=== PATIENT | male | born 1990 | race African-American/Black ===

== ENCOUNTER 2024-01-27 21:35 | Emergency (ER) | payer SELFPAY ==
--- NOTE | ~2024-01-27 | XR_ITS ---
Clinical Indication: Fever PA and lateral views of the chest: Comparison: None Findings: The lungs are clear, without evidence of focal consolidation or pleural effusion. Cardiome diastinal silhouette is within normal limits. Bones and soft tissues are unremarkable. Impression: Normal chest. Reviewed, dictated and finalized at location . Impression: Normal chest.
[2024-01-27 21:40] VITALS: BP 142/75; PULSE 81; RESP 15; TEMP 36.7; O2SAT 97
[2024-01-27 22:27] LABS: Basophils Percent Auto 0.5 % (0.2-1.2); Eosinophils Percent Auto 0.5 % (0-4.4); Hematocrit 43.1 % (42.0-52.0); Hemoglobin 15.4 g/dL (14.0-18.0); Immature Granulocyte Absolute 0.01 K/mm3 (0.00-0.031); Immature Granulocyte Percent A 0.2 % (0-0.5); Lymphocytes Absolute Auto 1.28 K/mm3 (0.9-3.2); Lymphocytes Percent Auto 22.8 % (18.3-44.2); Mean Corpuscular HGB Conc 35.7 g/dl (32-36); Mean Corpuscular Volume 89.6 fl (80-100); Mean Platelet Volume 10.5 fl (7.4-10.4); Monocytes Absolute Auto 0.7 K/mm3 (0.1-0.6); Monocytes Percent Auto 12.3 % (2.6-8.5); Neutrophils Absolute Auto 3.6 K/mm3 (1.3-6.7); Neutrophils Percent Auto 63.7 % (45.5-73.1); Platelet Count Result 205 k/mm3 (150-375); Red Blood Count 4.81 M/mm3 (4.6-6.20); Red Cell Distribution Width 11.8 % (11.5-14.5); White Blood Count 5.6 K/mm3 (4.5-10.0)
[2024-01-27 22:31] LABS: Influenza A QL RT-PCR Negative (Negative); Influenza B QL RT-PCR Negative (Negative); RSV RNA, RT-PCR Negative (Negative); SARS-CoV-2 RNA PCR Negative (Negative)
[2024-01-27 22:45] LABS: Alanine Aminotransferase 48 U/L (6-50); Albumin Level 4.7 g/dL (3.5-5.1); Alkaline Phosphatase 89 U/L (38-126); Anion Gap 7 mmol/L (4-12); Aspartate Amino Transferase 37 U/L (17-59); Bilirubin,Total 0.9 mg/dL (0.2-1.3); Blood Urea Nitrogen 9 mg/dL (9-20); Calcium 8.9 mg/dL (8.4-10.2); Carbon Dioxide 23 mmol/L (22-30); Chloride 104 mmol/L (98-107); Creatine Kinase 273 U/L (55-170); Estimated CRCL calculation 110 ml/min; Estimated Glomerular Filt Rate > 60; Glucose 105 mg/dL (65-110); Potassium 3.6 mmol/L (3.4-5.0); Sodium 134 mmol/L (137-145)
--- NOTE | 2024-01-27 22:56 | ED.GENADULT ---
HPI - General Adult General Chief complaint: Unspecified Stated complaint: heat exhaustion, bodyaches, fatigue, back spasms Time Seen by Provider: 01/27/24 22:11 Source: patient Mode of arrival: ambulatory Limitations: no limitations History of Present Illness HPI narrative: This is a 33 year old male that presents to the ER for body aches. Reports he had been outside all day yesterday at his sons baseball game. He was concerned he may be dehydrated. When he got home he started to feel fatigued and have diffuse body aches. Today he continued to feel fatigued and have body aches/chills. Reports subjective fevers. Denies couhg, congestion, sore throat, vomiting, diarrhea. Related Data Allergies Allergy/AdvReac Type Severity Reaction Status Date / Time Penicillins Allergy Mild Verified 07/06/13 10:40 Review of Systems Review of Systems: CONSTITUTIONAL: Reports fever, chills ENT: Denies rhinorrhea, congestion, sore throat RESPIRATORY: Denies cough GASTROINTESTINAL: Denies nausea, vomiting, or diarrhea. MUSCULOSKELETAL: Reports myalgia. All systems reviewed & are unremarkable except as noted in HPI and below PMFSH Past Medical History Medical History (Updated 01/28/24 @ 01:17 by Althea Grant PA-C) No active medical problems Social History Social History (Updated 01/27/24 @ 23:01 by Althea Grant PA-C) Smoking status: Never smoker Exam Narrative: GENERAL: Well-appearing, well-nourished, and in no acute distress. HEAD: Normocephalic, atraumatic. EYES: EOMI. ENT: Nares clear, no rhinorrhea or epistaxis. Mucous membranes moist. Oropharynx without tonsillar hypertrophy exudate or other lesions. Bilateral TMs pearly baldwin non-bulging NECK: Supple. No adenopathy or masses. CHEST: Clear to auscultation. No respiratory distress. No wheezes rales or rhonchi HEART: Regular rate and rhythm. No murmur heard. Normal peripheral pulses. ABDOMEN: Soft, nontender, nondistended, normal active bowel sounds. EXTREMITIES: Normal range of motion. No edema. SKIN: Warm, dry, no rash. NEURO: No focal deficits. Alert and oriented x3. PSYCH: Normal mood and affect Course Course Emergency Course: Patient updated on his workup and agrees with plan of care Vital Signs Vital signs: Vital Signs Temperature 98.1 F 01/27/24 21:40 Pulse Rate 81 01/27/24 21:40 Respiratory Rate 15 01/27/24 21:40 Blood Pressure 142/75 H 01/27/24 21:40 Pulse Oximetry 97 01/27/24 21:40 Oxygen Delivery Room Air 01/27/24 21:40 Temperature 98.1 F 01/27/24 21:40 Pulse Rate 81 01/27/24 21:40 Respiratory Rate 15 01/27/24 21:40 Blood Pressure 142/75 H 01/27/24 21:40 Pulse Oximetry 97 01/27/24 21:40 Oxygen Delivery Room Air 01/27/24 21:40 Medical Decision Making MDM Narrative Medical decision making narrative: Patient presents to the ER for possible dehydration. Reporting fatigue, myalgias after being outside yesterday. He is afebrile in the ER and nontoxic appearing. His vitals are stable. CBC and metabolic panel without concerning findings. Urine with 6-10 white blood cells,, and no leukocyte esterase or nitrates. Patient is not having any urinary symptoms. COVID, RSV, and influenza screens are negative. Chest x-ray without acute cardiopulmonary abnormality. Patient reports relief after IV fluid hydration. He was updated on his workup and agrees with plan of care. He is to follow up with primary provider. He was given warnings to return to the ER Differential Diagnosis Differential Diagnosis: dehydration, viral syndrome, rhabdomyolysis, pneumonia, COVID, influenza Vital Signs Vital Signs: Vital Signs Temperature 98.1 F 01/27/24 21:40 Pulse Rate 81 01/27/24 21:40 Respiratory Rate 15 01/27/24 21:40 Blood Pressure 142/75 H 01/27/24 21:40 Pulse Oximetry 97 01/27/24 21:40 Oxygen Delivery Room Air 01/27/24 21:40 Temperature 98.1 F 01/27/24 21:40 Pulse Rate 81 01/27/24
[2024-01-27] MEDS: SODIUM CHLORIDE 0.9% IV 1,000 ML 999 ML IV CONT (23:04)
[2024-01-27] MEDS: KETOROLAC 15 MG/ML VIAL (*BKC) IV PUSH (23:04)
[2024-01-28 00:02] LABS: Monoscreen Negative (Negative); Negative Monotest Control Negative (Negative); Positive Monotest Control Positive (Positive)
[2024-01-28] MEDS: SODIUM CHLORIDE 0.9% IV 1,000 ML 999 ML IV CONT (00:15)
[2024-01-28 00:27] LABS: Appearance Urine Clear (Clear); Bacteria Urine None Seen /hpf; Bilirubin Urine Negative (Negative); Blood Urine Negative (Negative); Color Urine Yellow (Yellow); Glucose Urine UA Negative (Negative); Ketones Urine Negative (Negative); Leukocyte Esterase Ur Negative LEU/UL (Negative); Nitrate Urine Negative (Negative); Non Pathogenic Casts 0-2; Protein Urine Trace mg/dL (Negative); RBC Urine 0-2 /hpf (0-2); Specific Grav Ur 1.022 (1.001-1.035); Squamous Epithelial Cell Urine None Seen /hpf (Few); pH Urine 5.5 (5.0-9.0)
[2024-01-28 00:31] LABS: Add Urine Microscopic? YES
[2024-01-28 01:23] VITALS: PULSE 75; RESP 14; O2SAT 100
== END 2024-01-28 01:23 | disposition home or self-care (01) ==
PROVIDERS: Emergency Medicine; Emergency Provider Physician Assistant
DX: E86.0 Dehydration (principal); Z20.822 Contact with and (suspected) exposure to COVID-19
CPT/HCPCS: 36415; 71046; 80053; 81001; 82550; 85025; 86308; 87086; 87637; 96361; 96365; 99284; J1885; J7030